=== PATIENT | female | born 2005 | race Caucasian/White ===

== ENCOUNTER 2024-04-17 21:41 | Emergency (ER) | payer BC, OTHER, SELFPAY ==
[2024-04-17] VITALS (8 sets, daily range): BP systolic 116–149; BP diastolic 71–93; PULSE 97–131; RESP 22; TEMP 37.6; O2SAT 93–100; BMI 16.5
--- NOTE | 2024-04-17 21:46 | ED_ITS ---
HPI - Allergic Reaction General Chief complaint: Allergic Reaction Stated complaint: anaphylaxis Time Seen by Provider: 04/17/24 21:41 History of Present Illness HPI narrative: 18-year-old female with history of asthma, allergy to nuts presents by EMS for possible allergic reaction. This evening patient ate a [place] candy and afterwards felt like her throat was tight. She took a po benadryl and she and her dad decided to drive to the ER 'to be safe'. On the way patient stated that she felt like she was experiencing a ?mild asthma attack?. While trying to pass another vehicle the patient's father was pulled over by law enforcement. Law enforcement called dispatch, who recommended administration of EpiPen. EMS arrived to transport patient. Epipen administered at 2109. EMS reports no further interventions given en route. On arrival patient stated she felt back to normal. Has previously used epipen for allergic reactions, last administered in August 2023 Related Data Home Medications Medication Instructions Recorded Confirmed epinephrine [Epi E-Z Pen] IM 04/12/23 04/19/23 Previous Rx's Medication Instructions Recorded albuterol sulfate 90 mcg/actuation 2 puff inhalation Q6H PRN 04/12/23 aerosol inhaler shortness of breath or wheezing #6.7 grams epinephrine 0.3 mg/0.3 mL 0.3 mg (0.3 mL) IM ONCE #2 ea 04/19/23 injection, auto-injector (EpiPen) epinephrine 0.3 mg/0.3 mL 0.3 mg (0.3 mL) IM Q5-15M PRN 04/17/24 injection, auto-injector (EpiPen) anaphylaxis #2 ea Allergies Allergy/AdvReac Type Severity Reaction Status Date / Time peanut Allergy Verified 04/17/24 21:58 tree nut Allergy Verified 04/17/24 21:53 Patient History Social History Smoking Status: Never smoker Smoking Status: Never smoker Exam Initial Vital Signs Initial Vital Signs: Vital Signs Pulse Rate 112 H 04/17/24 21:43 Pulse Oximetry 93 04/17/24 21:43 Const: Awake, alert, no acute distress, nontoxic appearing Mouth: Mucous membranes moist, airway patent Cardiac: Tachycardia, regular rhythm RESP: unlabored, clear bilaterally, no wheezing Skin: Warm, Dry, intact, no rashes Neuro: AO x3, CN II-XII grossly intact, moves all extremities Course Vital Signs Vital signs: Vital Signs - 8 hr 04/17/24 21:43 04/17/24 21:44 04/17/24 21:44 Temperature Pulse Rate 112 H 114 H Respiratory Rate Blood Pressure 149/93 H Pulse Oximetry 93 100 Oxygen Delivery Method 04/17/24 21:48 04/17/24 21:48 04/17/24 21:49 Temperature 99.6 F Pulse Rate 110 H 115 H Respiratory Rate 22 Blood Pressure 130/75 149/93 H Pulse Oximetry 100 100 Oxygen Delivery Method Room Air 04/17/24 22:00 04/17/24 22:00 04/17/24 22:22 Temperature Pulse Rate 131 H 101 H Respiratory Rate Blood Pressure 138/78 Pulse Oximetry 99 98 Oxygen Delivery Method Room Air 04/17/24 22:30 04/17/24 22:30 04/17/24 23:00 Temperature Pulse Rate 110 H 97 H Respiratory Rate Blood Pressure 124/71 Pulse Oximetry 97 97 Oxygen Delivery Method 04/17/24 23:00 Temperature Pulse Rate Respiratory Rate Blood Pressure 116/73 Pulse Oximetry Oxygen Delivery Method MDM - Allergic Reaction Differential Diagnosis Differential diagnosis: Likely anaphylaxis, allergic reaction and adverse reaction to drug MDM Narrative Medical decision making narrative: Allergic reaction. Patient's self administered EpiPen at request of 911 dispatch. On arrival to the emergency department patient was slightly tachycardic, however in no acute distress, lungs clear, airway patent with no signs of swelling. Tachycardia likely secondary to epinephrine administration. Placed on cardiac nurse specialist, we will observe. Patient has been observed in our emergency department, it was now over 2 hours after initial EpiPen administration. Patient states that she feels ?back to normal? and has no new complaints. Heart rate has come back down to within normal levels. On repeat exam airways patent, lungs are clear to auscultation bilaterally. Patient requested an EpiPen refill, which is sent to pharmacy of choice. She was advised to take an additional Benadryl before bed, otherwise avoidance of allergens should prevent recurrence of symptoms. Discharge Plan Departure Patient Disposition: Home Clinical Impression: Anaphylaxis Instructions: DI for Anaphylaxis Activity Restrictions/Additional Instructions: Take an extra Benadryl before bed. Avoid allergens to prevent repeat allergic reactions. EpiPen prescription refill has been sent to your pharmacy. Follow up as needed with your primary care doctor Prescriptions: New epinephrine [EpiPen] 0.3 mg/0.3 mL auto-injector 0.3 mg IM Q5-15M PRN (Reason: anaphylaxis) Qty: 2 0RF Rx Instructions: do not exceed 3 doses per episode No Action epinephrine [EpiPen] 0.3 mg/0.3 mL auto-injector 0.3 mg IM ONCE Qty: 2 2RF Rx Instructions: as a single dose; may repeat once epinephrine [Epi E-Z Pen] IM albuterol sulfate 90 mcg/actuation HFA aerosol inhaler 2 puff inhalation Q6H PRN (Reason: shortness of breath or wheezing) Qty: 6.7 0RF Referrals: Claudia Cooper MD [Primary Care Provider] - Stand Alone Forms: Patient Portal/API/Survey
== END 2024-04-17 23:23 | disposition home or self-care (01) ==
PROVIDERS: Emergency Provider Emergency Medicine; PCP Family Medicine
DX: T78.2XXA Anaphylactic shock, unspecified, initial encounter (principal); X58.XXXA Exposure to other specified factors, initial encounter
CPT/HCPCS: 99281

== ENCOUNTER 2024-04-27 19:54 | Emergency (ER) | payer BC, OTHER, SELFPAY ==
[2024-04-27 20:03] VITALS: BP 134/83; PULSE 102; RESP 19; TEMP 37.1; O2SAT 99; BMI 16.5
--- NOTE | 2024-04-27 20:44 | ED.ALLEREA ---
HPI - Allergic Reaction General Chief complaint: Allergic Reaction Stated complaint: allergic reaction to food, administerd epi pen Time Seen by Provider: 04/27/24 20:41 Source: patient Mode of arrival: Ambulatory History of Present Illness HPI narrative: 18-year-old female with history of nut allergy, had accidental exposure to nuts, with throat tightening and chest discomfort symptoms, tingling in her hands. No swelling to her tongue, lips, eyelids. No rash or hives recalled. She is able to swallow. She has no abdominal discomfort, no diarrhea. No recent illness, no fevers or chills. She administered her own epinephrine injection, no other medications taken thus far. She still has some sensation of throat tightening and chest discomfort although improved after epinephrine Related Data Home Medications Medication Instructions Recorded Confirmed epinephrine [Epi E-Z Pen] IM 04/12/23 04/19/23 Previous Rx's Medication Instructions Recorded albuterol sulfate 90 mcg/actuation 2 puff inhalation Q6H PRN 04/12/23 aerosol inhaler shortness of breath or wheezing #6.7 grams epinephrine 0.3 mg/0.3 mL 0.3 mg (0.3 mL) IM ONCE #2 ea 04/19/23 injection, auto-injector (EpiPen) epinephrine 0.3 mg/0.3 mL 0.3 mg (0.3 mL) IM Q5-15M PRN 04/17/24 injection, auto-injector (EpiPen) anaphylaxis #2 ea epinephrine 0.3 mg/0.3 mL 0.3 mg (0.3 mL) IM Q5-15M PRN 04/27/24 injection, auto-injector (EpiPen anaphylaxis #2 ea 2-Gavin) prednisone 20 mg tablet 40 mg (2 x 20 mg) PO DAILY 5 days 04/27/24 #10 tabs Allergies Allergy/AdvReac Type Severity Reaction Status Date / Time peanut Allergy Verified 04/17/24 21:58 tree nut Allergy Verified 04/17/24 21:53 Patient History Social History Smoking Status: Never smoker Smoking Status: Never smoker Exam Narrative Exam Narrative: GENERAL: Well-developed patient, in mild distress. HEAD: Atraumatic. Normocephalic. EYES: Pupils equal round and reactive. Extraocular motions intact. No scleral icterus. No injection or drainage. ENT: Nose without bleeding, purulent drainage. Throat without erythema, tonsillar hypertrophy or exudate. Airway patent. No edema to if lips eyelids tongue, moves neck well, normal phonation NECK: Trachea midline. Non tender CARDIOVASCULAR: Regular rate and rhythm without murmurs, gallops, or rubs. RESPIRATORY: Clear to auscultation. Breath sounds equal bilaterally. No wheezes, rales, or rhonchi. GASTROINTESTINAL: Abdomen soft, non-tender, nondistended. EXTREMITIES: No edema or joint tenderness. BACK: Nontender without deformity or crepitance. No flank tenderness. NEURO: AOx3. Motor functions grossly nonfocal SKIN: No rash or erythema of visible areas Initial Vital Signs Initial Vital Signs: Vital Signs Temperature 98.7 F 04/27/24 20:03 Pulse Rate 102 H 04/27/24 20:03 Respiratory Rate 19 04/27/24 20:03 Blood Pressure 134/83 04/27/24 20:03 Pulse Oximetry 99 04/27/24 20:03 Oxygen Delivery Method Room Air 04/27/24 20:03 Course Orders Ordered: Discontinued Medications Albuterol (Albuterol 2.5 Mg/3 Ml Neb (Adult)) 2.5 mg INH NOW ONE Stop: 04/27/24 20:46 Last Admin: 04/27/24 20:47 Dose: 2.5 mg Documented By: MARIA TERESA Diphenhydramine HCl (Diphenhydramine 50 Mg/Ml Vial) 50 mg IV NOW ONE Stop: 04/27/24 20:42 Last Admin: 04/27/24 20:45 Dose: 50 mg Documented By: MARIA TERESA Methylprednisolone (Methylprednisolone 125 Mg/2 Ml Vial) 125 mg IV NOW ONE Stop: 04/27/24 20:42 Last Admin: 04/27/24 20:45 Dose: 125 mg Documented By: MARIA TERESA Vital Signs Vital signs: Vital Signs - 8 hr 04/27/24 21:40 04/27/24 21:41 04/27/24 21:41 Pulse Rate 102 H 100 H Respiratory Rate 16 Blood Pressure 131/77 Pulse Oximetry 100 100 Oxygen Delivery Method Room Air 04/27/24 22:18 Pulse Rate 101 H Respiratory Rate 14 Blood Pressure 134/83 Pulse Oximetry 100 Oxygen Delivery Method Room Air MDM - Allergic Reaction MDM Narrative Medical decision making narrative: 18-year-old female with accidental exposure to nuts, has some nut allergy, throat tightening and chest tightening symptoms, gave self injected epinephrine, some improvement, still has residual symptoms. Lungs clear, no obvious facial angioedema changes, normal phonation, speaks in full sentences. We will give IV Solu-Medrol, IV Benadryl, nebulized albuterol. We will need refill of her epinephrine at discharge. Symptoms much improved. Prescription sent for prednisone pulse next 5 days. Advised [id number] prednisone taken next few days. Prescription sent for refill epi autoinjector set, with additional refill. We also briefly discussed consideration for urologists referral to consider desensitization from nuts, should she have future accidental exposures, if desired. Stable, improved, discharged home with family. Return precautions discussed Discharge Plan Departure Patient Disposition: Home Clinical Impression: Allergic reaction, Allergy to nuts Activity Restrictions/Additional Instructions: History of nut allergies, accidental exposure to nuts tonight, with throat tightening and chest tightening sensation, injection self administered epinephrine was given, some improvement of symptoms but still residual symptoms. IV steroids Solu-Medrol and IV antihistamine Benadryl was given here. Breathing treatment also given here of albuterol. No hives obvious on exam. Speaking in full sentences, with clear lungs. No swelling of lips or tongue. Moving neck well, with normal voice/phonation. We will send prescription for further steroid prednisone to take orally for the next few days. Consider taking regular scheduled oral Benadryl 50 mg 3-4 times daily for the next few days as well. Refill of epinephrine autoinjector sent to your pharmacy as well. Consider allergy referral, discussed with your primary care provider, if you would like some desensitization trial, to consider in follow up, if that might be helpful to avoid reactions with future accidental exposures. Avoid not exposures as much as possible. Return to this/nearest emergency department for any change worsening symptoms or any concerns Prescriptions: New prednisone 20 mg tablet 40 mg PO DAILY 5 Days Qty: 10 0RF epinephrine [EpiPen 2-Gavin] 0.3 mg/0.3 mL auto-injector 0.3 mg IM Q5-15M PRN (Reason: anaphylaxis) Qty: 2 1RF Rx Instructions: do not exceed 3 doses per episode No Action epinephrine [EpiPen] 0.3 mg/0.3 mL auto-injector 0.3 mg IM ONCE Qty: 2 2RF Rx Instructions: as a single dose; may repeat once epinephrine [Epi E-Z Pen] IM albuterol sulfate 90 mcg/actuation HFA aerosol inhaler 2 puff inhalation Q6H PRN (Reason: shortness of breath or wheezing) Qty: 6.7 0RF epinephrine [EpiPen] 0.3 mg/0.3 mL auto-injector 0.3 mg IM Q5-15M PRN (Reason: anaphylaxis) Qty: 2 0RF Rx Instructions: do not exceed 3 doses per episode Referrals: Claudia Cooper MD [Primary Care Provider] - Stand Alone Forms: Patient Portal/API/Survey
[2024-04-27] MEDS: methylPREDNISolone 125 MG/2 ML VIAL IV (20:45)
[2024-04-27] MEDS: diphenhydrAMINE 50 MG/ML VIAL IV (20:45)
[2024-04-27] MEDS: ALBUTEROL 2.5 MG/3 ML NEB (ADULT) INH (20:47)
[2024-04-27 21:40] VITALS: PULSE 102; O2SAT 100
[2024-04-27 21:41] VITALS: BP 131/77; PULSE 100; RESP 16; O2SAT 100
[2024-04-27 22:18] VITALS: BP 134/83; PULSE 101; RESP 14; O2SAT 100
== END 2024-04-27 22:18 | disposition home or self-care (01) ==
PROVIDERS: Emergency Provider Emergency Medicine; PCP Family Medicine
DX: T78.1XXA Other adverse food reactions, not elsewhere classified, initial encounter (principal); Z91.018 Allergy to other foods; Z91.010 Allergy to peanuts
CPT/HCPCS: 96374; 96375; 99284; J1200; J2919; J7613

== ENCOUNTER 2024-04-28 17:24 | Emergency (ER) | payer BC, OTHER, SELFPAY ==
[2024-04-28] VITALS (12 sets, daily range): BP systolic 106–139; BP diastolic 62–86; PULSE 69–126; RESP 15–26; O2SAT 94–100
--- NOTE | 2024-04-28 17:33 | ED_ITS ---
HPI - Allergic Reaction <Justyna Nina, DO - Last Filed: 04/29/24 07:29> General Chief complaint: Allergic Reaction Stated complaint: Allergic Reaction Time Seen by Provider: 04/28/24 17:32 Source: patient, family, EMS, RN notes reviewed and old records reviewed Mode of arrival: EMS Limitations: no limitations History of Present Illness HPI narrative: 18-year-old female history of nut allergy had accidental exposure yesterday with throat tightening and chest discomfort and tingling was seen in the emergency department after using her EpiPen and received albuterol, Benadryl and Solu-Me drol. Patient states that she was feeling improved until about 45 minutes prior to calling EMS she took 25 mg of Benadryl and EMS gave her an additional 50 mg. She states she was a little bit better but still feels a little bit tight in her throat states her heart rate felt fast but that feels improved she does not feel tight or wheezy in her chest currently she does not have any swelling of her lips tongue or oropharynx. No changes to her voice. No nausea or vomiting. No rash or skin changes although patient states she does not normally get a rash. She does not think she would any new exposures she states today symptoms has been a lot slower in symptoms and onset. Patient states no other daily prescription medications. She did not receive any additional epinephrine today. Patient denies any other medication allergies. No tobacco, alcohol or recreational drugs. Related Data Home Medications Medication Instructions Recorded Confirmed epinephrine [Epi E-Z Pen] IM 04/12/23 04/19/23 Previous Rx's Medication Instructions Recorded albuterol sulfate 90 mcg/actuation 2 puff inhalation Q6H PRN 04/12/23 aerosol inhaler shortness of breath or wheezing #6.7 grams epinephrine 0.3 mg/0.3 mL 0.3 mg (0.3 mL) IM ONCE #2 ea 04/19/23 injection, auto-injector (EpiPen) epinephrine 0.3 mg/0.3 mL 0.3 mg (0.3 mL) IM Q5-15M PRN 04/17/24 injection, auto-injector (EpiPen) anaphylaxis #2 ea epinephrine 0.3 mg/0.3 mL 0.3 mg (0.3 mL) IM Q5-15M PRN 01/04/25 injection, auto-injector (EpiPen anaphylaxis #2 ea 2-Gavin) prednisone 20 mg tablet 40 mg (2 x 20 mg) PO DAILY 5 days 04/27/24 #10 tabs Allergies Allergy/AdvReac Type Severity Reaction Status Date / Time peanut Allergy Verified 04/17/24 21:58 tree nut Allergy Verified 04/17/24 21:53 Review of Systems <Justyna Nina DO - Last Filed: 04/29/24 07:29> Review of Systems ROS Unobtainable: All systems reviewed & are unremarkable except as noted in HPI and below Patient History <Justyna Nina DO - Last Filed: 04/29/24 07:29> Social History Smoking Status: Never smoker Smoking Status: Never smoker Exam <Justyna Nina DO - Last Filed: 04/29/24 07:29> Narrative Exam Narrative: GEN: well nourished, well appearing female, alert and oriented x 3, patient appears to be in mild distress. HEENT: Atraumatic, pupils are equal round reactive to light, extraocular movements are intact, nares are clear, TMs are clear with no fluid, there is no conjunctival pallor. Throat is clear without any exudates, erythema, tonsillar enlargement or uvular deviation, no stridor, no difficulty with secretions. HEART: Patient is tachycardic but regular rate and rhythm without murmur, clicks, rubs. No carotid bruits, pulses are equal in upper and lower extremities LUNGS:Lungs clear to auscultation, no wheezes, rales, crackles, chest moves symmetrically, no tachypnea or accessory muscle use ABD:bowel sounds normal, soft, non-tender, no guarding, rebound, rigidity, no masses noted, no hepatosplenomegaly MSCL: Non-tender, no muscle atrophy, muscles strength 5/5 upper and lower extremities, full range of motion, normal gait NEURO:CN 2-12 intact, sensation normal SKIN: No rash, erythema or other skin changes. Initial Vital Signs Initial Vital Signs: Vital Signs Pulse Rate 123 H 04/28/24 17:25 Respiratory Rate 24 04/28/24 17:25 Blood Pressure 126/79 04/28/24 17:25 Pulse Oximetry 97 04/28/24 17:25 Oxygen Delivery Method Room Air 04/28/24 17:25 <Zeeshan Delgado MD - Last Filed: 04/29/24 03:24> Initial Vital Signs Initial Vital Signs: Vital Signs Pulse Rate 123 H 04/28/24 17:25 Respiratory Rate 24 04/28/24 17:25 Blood Pressure 126/79 04/28/24 17:25 Pulse Oximetry 97 04/28/24 17:25 Oxygen Delivery Method Room Air 04/28/24 17:25 Course <Justyna Nina DO - Last Filed: 04/29/24 07:29> Orders Ordered: Discontinued Medications Diphenhydramine HCl (Diphenhydramine 50 Mg/Ml Vial) 50 mg IV Q6H [facility] Stop: 04/29/24 05:30 Last Admin: 04/28/24 23:35 Dose: 50 mg Documented By: SUREKHA Famotidine (Famotidine 20 Mg/2 Ml Vial) 20 mg IV NOW ONE Stop: 04/28/24 17:34 Last Admin: 04/28/24 17:35 Dose: 20 mg Documented By: MARTIN Sodium Chloride (Normal Saline 0.9%) 1,000 mls @ 1,000 mls/hr IV BOLUS ONE Stop: 04/28/24 18:31 Last Infusion: 04/28/24 18:23 Dose: Infused Documented By: Admin: 04/28/24 17:42 Dose: 1,000 mls/hr Documented By: MARTIN Methylprednisolone 80 mg/ (Sodium Chloride) 250 mls @ 250 mls/hr IV Q6HR LINDA Stop: 04/29/24 05:30 Last Admin: 04/28/24 23:34 Dose: Not Given Documented By: SUREKHA Methylprednisolone (Methylprednisolone 125 Mg/2 Ml Vial) 125 mg IV NOW ONE Stop: 04/28/24 17:33 Last Admin: 04/28/24 17:35 Dose: 125 mg Documented By: MARTIN Methylprednisolone (Methylprednisolone 125 Mg/2 Ml Vial) 80 mg IV NOW ONE Stop: 04/28/24 23:25 Last Admin: 04/28/24 23:35 Dose: 80 mg Documented By: SUREKHA Vital Signs Vital signs: Vital Signs - 8 hr 04/28/24 23:30 04/29/24 00:00 04/29/24 00:30 Pulse Rate 69 109 H 78 Respiratory Rate 17 18 18 Blood Pressure 106/64 130/82 125/81 Pulse Oximetry 99 100 98 Oxygen Delivery Method Room Air Room Air 04/29/24 01:00 04/29/24 01:30 Pulse Rate 64 69 Respiratory Rate 17 21 Blood Pressure 113/73 116/75 Pulse Oximetry 98 98 Oxygen Delivery Method Room Air <Zeeshan Delgado MD - Last Filed: 04/29/24 03:24> Orders Ordered: Discontinued Medications Diphenhydramine HCl (Diphenhydramine 50 Mg/Ml Vial) 50 mg IV Q6H [facility] Stop: 04/29/24 05:30 Last Admin: 04/28/24 23:35 Dose: 50 mg Documented By: SUREKHA Famotidine (Famotidine 20 Mg/2 Ml Vial) 20 mg IV NOW ONE Stop: 04/28/24 17:34 Last Admin: 04/28/24 17:35 Dose: 20 mg Documented By: MARTIN Sodium Chloride (Normal Saline 0.9%) 1,000 mls @ 1,000 mls/hr IV BOLUS ONE Stop: 04/28/24 18:31 Last Infusion: 04/28/24 18:23 Dose: Infused Documented By: Admin: 04/28/24 17:42 Dose: 1,000 mls/hr Documented By: MARTIN Methylprednisolone 80 mg/ (Sodium Chloride) 250 mls @ 250 mls/hr IV Q6HR [facility] Stop: 04/29/24 05:30 Last Admin: 04/28/24 23:34 Dose: Not Given Documented By: SUREKHA Methylprednisolone (Methylprednisolone 125 Mg/2 Ml Vial) 125 mg IV NOW ONE Stop: 04/28/24 17:33 Last Admin: 04/28/24 17:35 Dose: 125 mg Documented By: MARTIN Methylprednisolone (Methylprednisolone 125 Mg/2 Ml Vial) 80 mg IV NOW ONE Stop: 04/28/24 23:25 Last Admin: 04/28/24 23:35 Dose: 80 mg Documented By: SUREKHA Vital Signs Vital signs: Vital Signs - 8 hr 04/28/24 23:30 04/29/24 00:00 04/29/24 00:30 Pulse Rate 69 109 H 78 Respiratory Rate 17 18 18 Blood Pressure 106/64 130/82 125/81 Pulse Oximetry 99 100 98 Oxygen Delivery Method Room Air Room Air 04/29/24 01:00 04/29/24 01:30 Pulse Rate 64 69 Respiratory Rate 17 21 Blood Pressure 113/73 116/75 Pulse Oximetry 98 98 Oxygen Delivery Method Room Air MDM - Allergic Reaction <Justyna Nina DO - Last Filed: 04/29/24 07:29> [facility] Narrative Medical decision making narrative: 18-year-old female notes some slow progression of symptoms today not as quick as yesterday discussed possibility of rebound reaction had Benadryl EN route we will give Solu-Medrol, fluids we will continue to monitor closely this time patient states her symptoms are not as significant as yesterday we will have low threshold to give epinephrine. Patient feels improved after fluids, Solu-Medrol Benadryl and Pepcid. Patient signed out to Dr. Delgado while continuing to monitor. <Zeeshan Delgado MD - Last Filed: 04/29/24 03:24> [facility] Narrative Medical decision making narrative: 18-year-old female notes some slow progression of symptoms today not as quick as yesterday discussed possibility of rebound reaction had Benadryl EN route we will give Solu-Medrol, fluids we will continue to monitor closely this time patient states her symptoms are not as significant as yesterday we will have low threshold to give epinephrine. Patient feels improved after fluids, Solu-Medrol Benadryl and Pepcid. Patient signed out to Dr. Delgado while continuing to monitor. 04/28/2024, [email or web address]. Sign-out from Dr. Nina. Patient known to me from yesterday visit. Had allergic reaction anaphylactoid in response to nut exposure, history of known exposure, at that time had taken her own EpiPen, was treated with Solu-Medrol Benadryl and albuterol breathing treatment on previous visit, felt much improved and went home with prescriptions for prednisone and Benadryl, she is taking those medications, but unfortunately had recurrence of throat tightening symptoms, arrived by EMS who gave more Benadryl. Solu-Medrol additionally given here. Feels much improved. Examined by me, no respiratory distress, looks significantly improve, agreeable to further observation in the emergency department for now. She had refills of her EpiPen supply as well, did not use them today. We will continue to monitor. 04/29/2024, 0100, patient received 1130pm repeat IV Solu-Medrol and Benadryl doses, continues feeling well. She would like to go home. Home with family. She has supply of prednisone from her previous stay yesterday. She has supply of her EpiPen. She expressed understanding of instructions to take Benadryl for an additional few days as well. Avoid nuts. 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 Stable, improved. Return precautions discussed Discharge Plan Departure Patient Disposition: Home Clinical Impression: Allergy to nuts, Allergic reaction Activity Restrictions/Additional Instructions: Previous visit here overnight for a few hours after exposure to nuts, history of nut allergy, at that visit you had given herself an injection of epinephrine and felt some improvement, steroids and antihistamines were given IV in your watched for a a couple of more hours and then discharged home, you were able to fill your prescription for additional prednisone oral steroid and we are aware of instructions to continue further oral Benadryl doses, and refill of your epinephrine for self administration in case you had allergic reaction and anaphylaxis. You unfortunately had more symptoms throat tightening at home, returned, IV Benadryl and steroids were again given. We watched here for an additional 6 hours and repeated the steroids and antihistamine intravenous doses before midnight. Additional observation after that dose. You seemed to be doing well, no obvious rebound anaphylactoid reaction at this time. Discharge home, continue taking your previously prescribed prednisone for the next few days. Continue taking Benadryl on a regular scheduled 4 times daily over the next few days. You have access now to your epinephrine pen to use if you have severe reaction remote from advanced medical care. Consider job captain referral for nut allergy desensitization in follow up, discuss with your regular doctor. Avoid nuts and nut containing food products. Return earlier to this/nearest emergency department for any change worsening symptoms or any concerns prior Prescriptions: No Action epinephrine [EpiPen] 0.3 mg/0.3 mL auto-injector 0.3 mg IM ONCE Qty: 2 2RF Rx Instructions: as a single dose; may repeat once epinephrine [Epi E-Z Pen] IM albuterol sulfate 90 mcg/actuation HFA aerosol inhaler 2 puff inhalation Q6H PRN (Reason: shortness of breath or wheezing) Qty: 6.7 0RF epinephrine [EpiPen] 0.3 mg/0.3 mL auto-injector 0.3 mg IM Q5-15M PRN (Reason: anaphylaxis) Qty: 2 0RF Rx Instructions: do not exceed 3 doses per episode prednisone 20 mg tablet 40 mg PO DAILY 5 Days Qty: 10 0RF epinephrine [EpiPen 2-Gavin] 0.3 mg/0.3 mL auto-injector 0.3 mg IM Q5-15M PRN (Reason: anaphylaxis) Qty: 2 1RF Rx Instructions: do not exceed 3 doses per episode Referrals: Claudia Cooper MD [Primary Care Provider] - Stand Alone Forms: Patient Portal/API/Survey
[2024-04-28] MEDS: methylPREDNISolone 125 MG/2 ML VIAL IV (17:35)
[2024-04-28] MEDS: FAMOTIDINE 20 MG/2 ML VIAL IV (17:35)
[2024-04-28] MEDS: SODIUM CHLORIDE 0.9% 1,000 ML 1000 ML IV (17:42)
[2024-04-28] MEDS: methylPREDNISolone 125 MG/2 ML VIAL 80 MG IV (23:35)
[2024-04-28] MEDS: diphenhydrAMINE 50 MG/ML VIAL IV (23:35)
[2024-04-29] VITALS: BP 130/82; PULSE 109; RESP 18; O2SAT 100
[2024-04-29 00:30] VITALS: BP 125/81; PULSE 78; RESP 18; O2SAT 98
[2024-04-29 01:00] VITALS: BP 113/73; PULSE 64; RESP 17; O2SAT 98
[2024-04-29 01:30] VITALS: BP 116/75; PULSE 69; RESP 21; O2SAT 98
== END 2024-04-29 01:55 | disposition home or self-care (01) ==
PROVIDERS: Emergency Provider Emergency Medicine; PCP Family Medicine
DX: T78.1XXA Other adverse food reactions, not elsewhere classified, initial encounter (principal); Z91.018 Allergy to other foods; Z91.010 Allergy to peanuts
CPT/HCPCS: 96361; 96374; 96375; 96376; 99283; 99284; J1200; J2919

== ENCOUNTER → 2024-05-08 10:49 | Outpatient (CLI) | payer BC, OTHER, SELFPAY | PROVIDERS: PCP Family Medicine; Visit Provider Nurse Practitioner Family | DX: J02.9 Acute pharyngitis, unspecified (principal) | CPT/HCPCS: 87070 ==

== ENCOUNTER → 2025-03-19 10:35 | Outpatient (CLI) | payer OTHER, SELFPAY ==
[2025-03-19 11:19] LABS: Add Manual Diff / Slide Review NO; Hematocrit 34.4 % (36-46); Hemoglobin 12.1 g/dL (12.0-16.0); Lymphocytes Absolute Auto 1600 /uL (1100-4500); Mean Corpuscular HGB Conc 35.1 % (30-36); Mean Corpuscular Hemoglobin 30.2 PG (26-34); Mean Corpuscular Volume 86.1 fL (80-100); Platelet Count 254 X10^3/uL (150-400)
[2025-03-19 11:20] LABS: Appearance Urine UA CLEAR; Bilirubin Urine UA NEGATIVE (NEGATIVE); Color Urine UA YELLOW; Glucose Urine UA NEGATIVE (Negative); Ketones Urine UA NEGATIVE (NEGATIVE); Leukocyte Esterase Urine UA TRACE (NEGATIVE); Nitrite Urine UA NEGATIVE (Negative); Occult Blood Urine UA NEGATIVE (Negative); Protein Urine UA NEGATIVE (Negative); Specific Gravity Urine UA 1.015 (1.000-1.035); Urobilinogen Urine UA 0.2 E.U./dL (0.2)
[2025-03-19 11:21] LABS: pH Urine UA 6.0 (4.5-8.0)
[2025-03-19 11:24] LABS: Culture Indicated Urine Cult Not Indicated
[2025-03-19 11:41] LABS: Natera Collection Specimen Collected
[2025-03-20 14:44] LABS: Hepatitis B Surface Antigen NEGATIVE s/c (NEGATIVE)
[2025-03-20 14:57] LABS: HIV 1 & 2 Ab/Ag 4th Gen Combo NEGATIVE (NEGATIVE); Hep C Virus Ab w/Reflex Quant NEGATIVE s/c (NEGATIVE)
== END ==
PROVIDERS: PCP Family Medicine; Referring Provider Family Medicine; Visit Provider Family Medicine
DX: Z34.02 Encounter for supervision of normal first pregnancy, second trimester (principal)
CPT/HCPCS: 80055; 81003; 81015; 82105; 86787; 86803; 86850; 86900; 86901; 87086; 87186; 87389

== ENCOUNTER → 2025-03-26 16:50 | Outpatient (CLI) | payer OTHER, SELFPAY | PROVIDERS: PCP Family Medicine; Referring Provider Family Medicine; Visit Provider Family Medicine | DX: Z34.00 Encounter for supervision of normal first pregnancy, unspecified trimester (principal) | CPT/HCPCS: 36415; 82105 ==